=== PATIENT | male | born 1945 | race Asian ===

== ENCOUNTER 2023-02-02 23:06 | Emergency (ER) | payer BC, OTHER ==
[~2023-02-02] VITALS: Ht 165.1 cm; Wt 90.0 kg
[2023-02-03 00:34] LABS: Basophils # (auto) 0.1 10 ^3/uL (0-0.2); Basophils % (auto) 0.9 % (0.0-2.0); Eosinophils # (auto) 0 10 ^3/uL (0-0.8); Eosinophils % (auto) 0.2 % (0.0-7.0); Hematocrit 34.8 % (41.0-53.0); Hemoglobin 12.1 g/dL (13.5-17.5); Lymphocytes # (auto) 0.7 10 ^3/uL (0.4-5.4); Lymphocytes % (auto) 8.5 % (10.0-50.0); Mean Corpuscular Hemoglobin 31.8 pg (28.0-32.0); Mean Corpuscular Hgb Conc. 34.9 g/dL (32.0-36.0); Monocytes % (auto) 12.3 % (0.0-12.0); Neutrophils # (auto) 6.3 10 ^3/uL (1.6-8.6); Neutrophils % (auto) 78.1 % (37.0-80.0); Nucleated Red Blood Cells % 0.1 %; Red Blood Cells 3.82 10^6/uL (4.5-5.90); Red Cell Distribution Width 14.1 % (11.8-14.3); White Blood Cell 8.1 10^3/uL (4.4-10.8)
[2023-02-03 00:40] LABS: Albumin 3.6 g/dL (3.4-5.0); Anion Gap 6 (5-15); Calcium 8.8 mg/dL (8.5-10.1); Carbon Dioxide 23 mmol/L (21-32); Chloride 102 mmol/L (98-107); Glucose 131 mg/dL (74-106); Potassium 3.3 mmol/L (3.5-5.1); Sodium 131 mmol/L (136-145)
[2023-02-03 00:42] LABS: Blood Alcohol < 3.0 mg/dL (0-5); Salicylate < 1.7 mg/dL (2.8-20.0)
[2023-02-03 00:47] LABS: Acetaminophen < 2.0 ug/mL (10-30)
[2023-02-03 00:52] LABS: Alanine Aminotransferase 29 U/L (16-61); Alkaline Phosphatase 55 U/L (45-117); Aspartate Aminotransferase 10 U/L (15-37); Bilirubin, Total 0.3 mg/dL (0.2-1.0); GFR African American 61 mL/min; GFR Non-African American 51 mL/min; Total Protein 7.7 g/dL (6.4-8.2)
[2023-02-03 01:26] LABS: BUN/Creatinine Ratio 12.5 (10.0-20.0); Blood Urea Nitrogen 18 mg/dL (7-18)
[2023-02-03] MEDS ORDERED: AZITHROMYCIN 500MG/ 250ML 250 ML IV ONE (04:45)
[2023-02-03] MEDS ORDERED: cefTRIAXone 1GM/50ML D5W 50 ML IV ONE (04:45)
[2023-02-03] MEDS ORDERED: LACTATED RINGER'S 1,000 ML IV ONE (04:45)
[2023-02-03] MEDS ORDERED: POTASSIUM EFFERVESENT TAB 25 MEQ PO ONE (04:45)
[2023-02-03] MEDS ORDERED: ACETAMINOPHEN 325 MG TAB PO ONE (05:45)
[2023-02-03 08:00] VITALS: BP 164/95
== END 2023-02-03 08:50 | disposition short-term general hospital (02) ==
LOC: EDBD 23:06 → EDSEX 23:06 → ER 23:06
DX: U07.1 COVID-19 (principal); R53.1 Weakness; J18.9 Pneumonia, unspecified organism; R05.9 Cough, unspecified; E87.1 Hypo-osmolality and hyponatremia; E87.6 Hypokalemia; I12.9 Hypertensive chronic kidney disease with stage 1 through stage 4 chronic kidney disease, or unspecified chronic kidney disease; E11.22 Type 2 diabetes mellitus with diabetic chronic kidney disease; E11.65 Type 2 diabetes mellitus with hyperglycemia; N18.9 Chronic kidney disease, unspecified; I25.2 Old myocardial infarction; R07.89 Other chest pain; Z88.8 Allergy status to other drugs, medicaments and biological substances; Z88.2 Allergy status to sulfonamides
CPT/HCPCS: 36415; 70450; 71045; 80053; 80320; 80329; 83605; 83880; 84484; 85025; 87426; 87804; 93005; 96365; 96366; 96368; 99285; J0456; J0696